=== PATIENT | female | born 1995 | race Caucasian/White ===

== ENCOUNTER 2017-01-09 21:19 | Emergency (ER) | payer SELFPAY ==
[2017-01-09 21:26] VITALS: BP 135/87; BMI 29.2
--- NOTE | 2017-01-09 22:21 | DR.GENAD ---
HPI - PCP Primary Care Physician: heron - HPI Comment HPI Comment: HISTORY BELOW. - Complaint/Symptoms Chief Complaint Doctors Comments: PATIENT HIT HER KNEE AT WORK. SMALL RED AREA WITH SWELLING PRESENT. ALSO HAVE PROBLE FULLY FLEXING THE LEFT KNEE. Chief Complaint:: injured knee at work. patient states she hit her left knee on a shelf at work there is a small red area to left knee approx 6 mm in diameter. - Nurses notes reviewed Nurses Notes Review: Yes - Source History Provided: Patient - Mode of Arrival Mode of Arrival: Ambulatory - Timing Onset of Chief Complaint: 01/09/17 Came on: Suddenly - Duration Duration: Constant Duration: Days - Severity Severity: Moderate PMH - PMH Past Medical History: No Past Surgical History: No Surgical History: No History - Family History History of Family Medical Conditions: No - Social History Does any household member use tobacco: No Alcohol Use: None Do you use any recreational Drugs:: No Lives With: Family Lives Where: Home - infectious screening In the last 2 months have you had wt loss of >10#?: NO Have you had fever, night sweats or hemotysis?: No Have you traveled outside the country in the last 6 months?: No Isolation: Standard ROS - Review of Systems Constitutional: No Symptoms Reported Eyes: No Symptoms Reported ENTM: No Symptoms Reported Respiratoy: No Symptoms Reported Cardiovascular: No Symptoms Reported Gastrointestinal/Abdominal: No Symptoms Reported Genitourinary: No Symptoms Reported Neurological: No Symptoms Reported Musculoskeletal: Left, Knee Integumentary: No Symptoms Reported Hematologic/Lymphatic: No Symptoms Reported Endocrine: No Symptoms Reported All Other Systems: Reviewed and Negative PE - Vital Signs Vitals: Temperature 98.4 F Pulse Rate 84 Respiratory Rate 16 Blood Pressure [Left Arm] 136/77 Blood Pressure 135/87 O2 Sat by Pulse Oximetry 99 - General Limitations: No Limitations General Appearance: Alert - Head Head Exam: Normal Inspection - Eyes Eye exam: Normal Appearance - ENT ENT Exam: Normal External Ear Exam External Ear Exam: Normal External Inspection - Neck Neck Exam: Trachea Midline - Chest Chest Inspection: Symmetric Chest Wall Rise - Respiratory Respiratory Exam: Normal Lung Sounds Bilat Respiratory Exam: Bilateral Clear to Auscultation - Cardiovascular Cardiovascular Exam: Regular Rate, Normal Rhythm, Normal Heart Sounds - Abdominal Exam Abdominal Exam: Normal Bowel Sounds, Soft. negative: Tenderness - Extremities Extremities Exam: Tenderness (LT KNEE TENDER.), Joint Swelling (LT KNEE SWOLLEN AND TENDER.) - Back Back Exam: Normal Inspection - Neurologic Neurological Exam: Alert, Oriented X3 - Psychiatric Psychiatric Exam: Normal Affect, Normal Mood - Skin Skin Exam: Erythema MDM - Additional Information Additional Information Obtained From: Family - Differential Diagnosis Differential Diagnosis: CONTUSION, SPRAIN OR FRACTURE LEFT KNEE. Course - Treatment Treatment: SEE ORDERS - Education/Counseling Education/Counseling: Patient, Family, Education Educated On: Treatment, Diagnosis, Needs for Follow Up ROR - XRAY XRAY Interpreted by: Radiologist XRAY Findings: REPORT DISCUSS WITH PATIENT. - Diagnosis Discharge Problem: Knee contusion Qualifiers: Encounter type: initial encounter Laterality: left Qualified Code(s): S80.02XA - Contusion of left knee, initial encounter Left knee sprain Qualifiers: Encounter type: initial encounter Involved ligament of knee: unspecified ligament Qualified Code(s): S83.92XA - Sprain of unspecified site of left knee, initial encounter - Discharge Plan Disposition: 01 HOME, SELF-CARE Condition: Stable Prescriptions: Ibuprofen [MOTRIN TAB 600 MG *] 600 mg PO TID PRN #20 tab PRN Reason: Pain/Inflammation - Follow ups/Referrals Follow ups/Referrals: NFD,None [Primary Care Provider] - 2 days GERA EDDY [STAFF PHYSICIAN] - 2 days - Instructions Instructions: Knee Sprain, [id number], Contusion, [id number] Additional Instructions: RETURN TO ED IF WORSE.
--- NOTE | 2017-01-09 22:56 | RAD ---
Left knee three views Indication: Pain after trauma. Findings: There is no effusion, cortical lucency or malalignment. Impression: No acute left knee fracture. Reported By:
[2017-01-09] MEDS ORDERED: MOTRIN TAB 600 MG PO ONE (23:24)
[2017-01-09] MEDS: MOTRIN TAB 600 MG PO ONE (23:33)
== END 2017-01-09 23:35 | disposition home or self-care (01) ==
LOC: ER 21:19
DX: S80.02XA Contusion of left knee, initial encounter (principal); S83.92XA Sprain of unspecified site of left knee, initial encounter; X58.XXXA Exposure to other specified factors, initial encounter; Y92.69 Other specified industrial and construction area as the place of occurrence of the external cause
CPT/HCPCS: 29530; 73564; 99282; 99283

== ENCOUNTER 2017-11-02 22:49 | Emergency (ER) | payer MEDICAID, OTHER ==
[2017-11-02 22:55] VITALS: BP 168/83; BMI 29.1
[2017-11-03 00:32] LABS: SERUM PREGNANCY TEST, QUAL NEGATIVE <10 mIU/mL
[2017-11-03 00:38] LABS: BILIRUBIN,URINE NEGATIVE (NEGATIVE); BLOOD/HEMOGLOBIN,URINE 5+ (NEGATIVE); GLUCOSE, URINE NEGATIVE (NEGATIVE); KETONES,URINE NEGATIVE (NEGATIVE); LEUKOCYTE ESTERASE ,URINE 1+ (NEGATIVE); NITRITES,URINE NEGATIVE (NEGATIVE); PROTEIN,URINE NEGATIVE (NEGATIVE); UROBILINOGEN,URINE NORMAL (NORMAL)
[2017-11-03 00:57] LABS: APPEARANCE,URINE HAZY (CLEAR); BACTERIA,URINE 2+ /HPF (NEGATIVE); COLOR,URINE YELLOW (YELLOW); SQUAMOUS EPITHELIAL CELL,UR FEW /HPF (NEGATIVE)
--- NOTE | 2017-11-03 01:18 | DR.GENAD ---
HPI - PCP Primary Care Physician: NFD - Complaint/Symptoms Chief Complaint:: STARTED BLEEDING MODERATE. DENIES CRAMPING. TOOK TEST AND SUPPOSE TO GO TO CREDIT CONTROL OFFICER 11/11/17 - Source History Provided: Patient - Mode of Arrival Mode of Arrival: Ambulatory - Timing Onset of Chief Complaint: 11/02/17 PMH - PMH Past Medical History: No Past Surgical History: No Surgical History: No History - Family History History of Family Medical Conditions: No - Social History Does any household member use tobacco: No Alcohol Use: None Do you use any recreational Drugs:: No Lives With: Family Lives Where: Home - infectious screening In the last 2 months have you had wt loss of >10#?: NO Have you had fever, night sweats or hemotysis?: No Have you traveled outside the country in the last 6 months?: No Isolation: Standard ROS - Review of Systems Eyes: No Symptoms Reported ENTM: No Symptoms Reported Respiratoy: No Symptoms Reported Cardiovascular: No Symptoms Reported Gastrointestinal/Abdominal: No Symptoms Reported Genitourinary: No Symptoms Reported Neurological: No Symptoms Reported Musculoskeletal: No Symptoms Reported Integumentary: No Symptoms Reported Hematologic/Lymphatic: No Symptoms Reported Endocrine: No Symptoms Reported Psychiatric: No Symptoms Reported All Other Systems: Reviewed and Negative PE - Vital Signs Vitals: Temperature 97.9 F Pulse Rate 100 Respiratory Rate 20 Blood Pressure [Left Arm] 136/77 Blood Pressure 168/83 O2 Sat by Pulse Oximetry 100 - General General Appearance: Alert, In No Apparent Distress - Head Head Exam: Normal Inspection, Atraumatic - Eyes Eye exam: Normal Appearance, PERRL, EOMI - ENT ENT Exam: Normal Exam External Ear Exam: Normal External Inspection TM/Canal Exam: Bilateral Normal Nose Exam: Normal Nose Exam Mouth Exam: Normal Inspection Throat Exam: Normal Inspection - Neck Neck Exam: Normal Inspection - Chest Chest Inspection: Normal Inspection - Respiratory Respiratory Exam: Normal Lung Sounds Bilat Respiratory Exam: Bilateral Clear to Auscultation - Cardiovascular Cardiovascular Exam: Regular Rate, Normal Rhythm - Abdominal Exam Abdominal Exam: Normal Inspection, Normal Bowel Sounds Abdominal Tenderness: negative: RUQ, RLQ, LUQ, LLQ, Epigastrium, Suprapubic, Diffuse, Mild, Moderate, Severe, Other - Extremities Extremities Exam: Normal Inspection, Full ROM - Back Back Exam: Normal Inspection - Neurologic Neurological Exam: Alert, Oriented X3, CN II-XII Intact - Psychiatric Psychiatric Exam: Normal Affect - Skin Skin Exam: Warm, Intact ROR - Labs Reviewed Laboratory: HCG, Qual Negative <10 mIU/mL 11/03/17 00:05 Specimen Type Clean catch urine 11/03/17 00:12 Urine Color Yellow (YELLOW) 11/03/17 00:12 Urine Appearance Hazy (CLEAR) 11/03/17 00:12 Urine pH 8.0 (5.0 - 8.0) 11/03/17 00:12 Ur Specific [place] 1.010 (1.000-1.030) 11/03/17 00:12 Urine Protein Negative (NEGATIVE) 11/03/17 00:12 Urine Glucose (UA) Negative (NEGATIVE) 11/03/17 00:12 Urine Ketones Negative (NEGATIVE) 11/03/17 00:12 Urine Occult Blood 5+ (NEGATIVE) 11/03/17 00:12 Urine Nitrite Negative (NEGATIVE) 11/03/17 00:12 Urine Bilirubin Negative (NEGATIVE) 11/03/17 00:12 Urine Urobilinogen Normal (NORMAL) 11/03/17 00:12 Ur Leukocyte Esterase 1+ (NEGATIVE) 11/03/17 00:12 Urine RBC 3-5 /HPF (NONE SEEN) 11/03/17 00:12 Urine WBC 5-10 /HPF (NONE SEEN) 11/03/17 00:12 Ur Squamous Epith Cells Few /HPF (NEGATIVE) 11/03/17 00:12 Urine Bacteria 2+ /HPF (NEGATIVE) 11/03/17 00:12 Ur Culture Indicated? Yes/culture set up 11/03/17 00:12 - Diagnosis Discharge Problem: Negative test - Discharge Plan Condition: Stable - Follow ups/Referrals Follow ups/Referrals: NFD,None [Primary Care Provider] - 3 days - Instructions
== END 2017-11-03 01:28 | disposition home or self-care (01) ==
LOC: ER 23:02
DX: N92.6 Irregular menstruation, unspecified (principal); Z32.02 Encounter for pregnancy test, result negative
CPT/HCPCS: 36415; 81001; 84703; 87086; 99282